=== PATIENT | male | born 1965 | race Caucasian/White ===

== ENCOUNTER 2019-02-14 15:46 | Observation (INO) ==
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
[2019-02-14 17:53] LABS: BASO# 0.02 X1000 (0.0-0.2); BASO% 0.2 % (0.0-0.8); EOS# 0.08 X1000 (0.0-0.7); EOS% 0.8 % (0.0-10.0); HEMATOCRIT 40.8 % (42.0-52.0); HEMOGLOBIN 14.7 g/dL (14.0-18.0); IMM GRAN# 0.02 X1000 (0.0-0.04); IMM GRAN% 0.2 % (0.0-0.5); LYMPH# 1.96 X1000 (1.2-3.4); LYMPH% 19.1 % (20.5-51.1); MCH 31.6 PG (27-31); MCV 87.7 FL (81-99); MONO# 0.48 X1000 (0.11-0.59); MONO% 4.7 % (1.7-9.3); MPV 9.3 FL (7.4-10.4); NEUT# 7.72 X1000 (1.4-6.5); PLT 260 X1000 (130-400); RBC 4.65 XMIL (4.7-6.1); WBC 10.28 X1000 (4.8-10.8)
[2019-02-14 18:17] LABS: AGAP 13; ALB/GLOB RATIO 2.1; ALBUMIN 4.8 g/dL (3.5-5.0); ALKALINE PHOSPHATASE 78 U/L (32-122); BUN 18 mg/dL (8-22); CALCIUM 9.5 mg/dL (8.8-10.2); CHLORIDE 104 mmol/L (98-107); COSMO 283; ESTIMATED GFR > 60; GLUCOSE 127 mg/dL (70-104); GOT 28 U/L (10-34); GPT 40 U/L (10-44); POTASSIUM 3.9 mmol/L (3.5-5.1); SODIUM 140 mmol/L (136-145); TCO2 23 mmol/L (25-35); TOTAL BILIRUBIN 0.63 mg/dL (0.20-1.00); TOTAL PROTEIN 7.1 g/dL (6.3-8.3)
[2019-02-14 18:19] LABS: URINE SOURCE CLEAN CATCH
[2019-02-14 18:21] LABS: BILIRUBIN URINE NEGATIVE (NEGATIVE); BLOOD URINE NEGATIVE (NEGATIVE); COLOR YELLOW; GLUCOSE URINE NEGATIVE (NEGATIVE); KETONE URINE 40 mg/dL (NEGATIVE); LEUKOCYTES URINE NEGATIVE (NEGATIVE); NITRITE URINE NEGATIVE (NEGATIVE); PH URINE 5.5; PROTEIN URINE NEGATIVE (NEGATIVE); SP GRAVITY URINE 1.012; TURBIDITY URINE CLEAR (CLEAR); UROBILINOGEN URINE NORMAL (NORMAL)
[2019-02-14 18:22] LABS: UR EPITHELIAL CELLS <10 /HPF (<10); URINE BACTERIA NEGATIVE /HPF; URINE RBC <10 /HPF (<10); URINE WBC <10 /HPF (<10)
[2019-02-14] MEDS ORDERED: TYLENOL PO ONE (18:25)
[2019-02-14 18:30] LABS: UR AMPHETAMINES QUAL NONE DETECTED (NONE DETECT); UR BARBITUATES QUAL NONE DETECTED (NONE DETECT); UR BENZODIAZEPIN QUAL NONE DETECTED (NONE DETECT); UR CANNABINOIDS QUAL NONE DETECTED (NONE DETECT); UR COCAINE QUAL NONE DETECTED (NONE DETECT); UR METHADONE QUAL NONE DETECTED (NONE DETECT); UR OPIATES QUAL NONE DETECTED (NONE DETECT); UR OXYCODONE QUAL NONE DETECTED (NONE DETECT); UR PCP QUAL NONE DETECTED (NONE DETECT)
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
[2019-02-14] MEDS ORDERED: TYLENOL PO PRN (23:12)
[2019-02-14] MEDS ORDERED: ZOFRAN IV PRN (23:12)
[2019-02-14] MEDS: NS 1,000 ML IV SCH (23:24)
[2019-02-15 09:10] LABS: BASO# 0.01 X1000 (0.0-0.2); BASO% 0.2 % (0.0-0.8); EOS# 0.16 X1000 (0.0-0.7); EOS% 2.7 % (0.0-10.0); HEMATOCRIT 39.7 % (42.0-52.0); LYMPH# 2.28 X1000 (1.2-3.4); LYMPH% 38.1 % (20.5-51.1); MCH 31.5 PG (27-31); MCHC 35.3 g/dL (33-37); MCV 89.2 FL (81-99); MONO# 0.43 X1000 (0.11-0.59); MONO% 7.2 % (1.7-9.3); MPV 9.9 FL (7.4-10.4); NEUT% 51.8 % (42.2-75.2); PLT 244 X1000 (130-400); RBC 4.45 XMIL (4.7-6.1); RDW 13.3 % (11.5-14.5); WBC 5.98 X1000 (4.8-10.8)
[2019-02-15] MEDS: NS 1,000 ML IV SCH (09:44)
[2019-02-15] MEDS ORDERED: TYLENOL PO PRN ×2 (09:48→11:58)
[2019-02-15 10:01] LABS: AGAP 14; BUN 12 mg/dL (8-22); CALCIUM 8.8 mg/dL (8.8-10.2); CHLORIDE 108 mmol/L (98-107); COSMO 291; CREATININE 0.9 mg/dL (0.7-1.2); ESTIMATED GFR > 60; GLUCOSE 206 mg/dL (70-104); POTASSIUM 3.8 mmol/L (3.5-5.1); SODIUM 143 mmol/L (136-145); TCO2 21 mmol/L (25-35)
[2019-02-15] MEDS ORDERED: GLUCOPHAGE XR PO ONE (11:05)
[2019-02-15] MEDS: FLEXERIL PO SCH ×3 (11:09→13:08)
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
[2019-02-15 11:22] LABS: HEMOGLOBIN A1C 7.5 % (4.8-6.0)
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
--- NOTE | 2019-02-15 14:06 | Diag Imaging Result Doc PS360 ---
MRI BRAIN W/WO CONTRAST - 02/15/2019 INDICATION: TBI COMPARISON: Head CT 02/14/2019 FINDINGS: There is no area of restricted diffusion. The ventricles and sulci are normal in size and contour. No intracranial mass or hemorrhage. No area of abnormal contrast enhancement. Midline structures including the optic chiasm and pituitary are normal. IMPRESSION: Negative exam. Electronically signed by Anson Tristan 02/15/2019 2:04 PM
[2019-02-15] MEDS ORDERED: HUMULIN R SUBQ SCH (16:00)
[2019-02-15 16:19] VITALS: BP 144/90
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
== END 2019-02-15 19:58 | disposition home or self-care (01) ==
LOC: SUPCPDRO → EDIPHOLD 15:46 → ED 15:46 → SUATTDRO 22:48 → 4N 02-15 01:56
PROVIDERS: ATTEND Internal Medicine
CPT/HCPCS: 70450; 70553; 72080; 72125; 80048; 80053; 80101; 80301; 80307; 80320; 80324; 80345; 80346; 80353; 80358; 80361; 80365; 81001; 82055; 82948; 83036; 83992; 85025; A9270; A9579; G0431; G0434; G0479; G0480; G6040; J7030; XXXXX